=== PATIENT | female | born 1980 ===

== ENCOUNTER 2018-05-10 09:19 | Emergency (ER) | payer OTHER ==
--- NOTE | 2018-05-10 09:56 | UC ---
Laceration HPI - HPI Summary HPI Summary: Gladys Mars, scribed for attending Cipriano Mendoza MD. Pt is a 37 y/o F who presents to [facility] for a wound recheck. On (2 days ago) she had a laceration on the left index finger that was sutured. Since suture placement, she has been icing it and leaving the wound wrapped and closed. Associated pain is currently moderate, ranked 6/10 on triage and characterized as throbbing. PMHx vasculitis and DM. Allergy to sulfa Abx. - History Of Current Complaint Chief Complaint: [facility] Stated Complaint: RECHECK STITCHES Time Seen by Provider: 05/10/18 09:27 Hx Obtained From: Patient Hx Last Menstrual Period: 04/19/2018 Laceration Location: Finger - Left index finger Onset/Duration: Lasting Days - 2 days, Still Present Severity: Moderate Pain Intensity: 6 - Throbbing Pain Scale Used: 0-10 Numeric Aggravating Factors: Nothing Related History: Other: - Sutured 2 days ago - Allergies/Home Medications Allergies/Adverse Reactions: Allergies Allergy/AdvReac Type Severity Reaction Status Date / Time bee venom protein (honey bee) Allergy Severe Anaphylatic Verified 05/10/18 09:42 Shock metoclopramide [From Reglan] Allergy Intermediate Stomach Verified 05/10/18 09: 40 Cramps asenapine [From Saphris] Allergy Mild Rash Verified 05/10/18 09:40 nalbuphine [From Nubain] Allergy Mild Rash Verified 05/10/18 09:40 paroxetine [From Paxil] Allergy Mild Rash Verified 05/10/18 09:38 Sulfa (Sulfonamide Allergy Mild Rash Verified 05/10/18 09:40 Antibiotics) tramadol Allergy Mild Rash Verified 05/10/18 09:40 PMH/Surg Hx/FS Hx/Imm Hx - Additional Past Medical History Additional PMH: PMHx: Vasculitis Endocrine History: Diabetes Respiratory History: Asthma - Surgical History Surgical History: Yes Surgery Procedure, Year, and Place: GALL BLADDER SURGERY. RIGHT ELBOW NERVE RELEASE 2017 - Family History Known Family History: Positive: Diabetes - Social History Alcohol Use: None Substance Use Type: Marijuana Substance Use Comment - Amount & Last Used: USED FOR PAIN MANAGMENT. Smoking Status (MU): Light Every Day Tobacco Smoker Type: Cigarettes Length of Time of Smoking/Using Tobacco: 4 CIG/DAY 2 YEARS Review of Systems Constitutional: Negative Skin: Other - Left index finger laceration (sutured) Eyes: Negative ENT: Negative Respiratory: Negative Cardiovascular: Negative Gastrointestinal: Negative Genitourinary: Negative Motor: Negative Neurovascular: Negative Musculoskeletal: Negative Neurological: Negative Psychological: Negative All Other Systems Reviewed And Are Negative: Yes Physical Exam - Summary Physical Exam Summary: Appearance: Well-appearing, Well-nourished Skin: Warm, laceration on the left index finger with sutures c/d/i, and no discharge Eyes: Normal ENT: Normal Neck: Supple, nontender Respiratory: Clear to auscultation Cardiovascular: Regular rate, regular rhythm. Normal S1, S2. Musculoskeletal: Normal, Strength/ROM Intact Neurological: Normal, A&Ox3 Psychiatric: Normal General: No acute distress Triage Information Reviewed: Yes Vital Signs Reviewed: Yes Laceration Course/Dx - Differential Dx - Laceration/Wound Provider Diagnoses: Left index finger laceration, wound recheck Discharge - Sign-Out/Discharge Documenting (check all that apply): Patient Departure - Discharge - Discharge Plan Condition: Stable Disposition: HOME Prescriptions: Cephalexin CAP* [Keflex CAP*] 500 mg PO TID 7 Days #21 cap Patient Education Materials: Care For Your Stitches (ED) Referrals: No Primary Care Phys,NOPCP [Primary Care Provider] - Additional Instructions: Please return to urgent care for suture removal in 8 days - Billing Disposition and Condition Condition: STABLE Disposition: Home
== END 2018-05-10 10:28 | disposition home or self-care (01) ==
LOC: UCEAST 09:19
DX: S61.211D Laceration without foreign body of left index finger without damage to nail, subsequent encounter (principal); J45.909 Unspecified asthma, uncomplicated; E11.9 Type 2 diabetes mellitus without complications; F17.210 Nicotine dependence, cigarettes, uncomplicated; Z91.030 Bee allergy status; Z88.8 Allergy status to other drugs, medicaments and biological substances; Z88.5 Allergy status to narcotic agent; Z88.2 Allergy status to sulfonamides
CPT/HCPCS: 99212; G0463